=== PATIENT | female | born 1990 | race Caucasian/White ===

== ENCOUNTER 2023-04-19 11:30 | Emergency (ER) | payer MEDICAID ==
[~2023-04-19] VITALS: Ht 162.6 cm; Wt 59.0 kg
[2023-04-19 11:36] VITALS: BP_SYST 94; PULSE 82; RESP 18; TEMP 97.4; O2SAT 100
[2023-04-19 12:57] LABS: INFLUENZA TYPE A Negative (NEGATIVE); INFLUENZA TYPE B NEGATIVE (NEGATIVE)
[2023-04-19] MEDS ORDERED: PSEU30TA36 PO (13:52)
[2023-04-19] MEDS ORDERED: ALBMDI INH (13:52)
[2023-04-19 15:19] VITALS: BP_SYST 94; PULSE 82; RESP 18; TEMP 97.4; O2SAT 100
== END 2023-04-19 15:28 | disposition home or self-care (01) ==
LOC: SED 11:30
DX: J40 Bronchitis, not specified as acute or chronic (principal); Z20.822 Contact with and (suspected) exposure to COVID-19; Z79.899 Other long term (current) drug therapy
CPT/HCPCS: 36415; 71045; 99284

== ENCOUNTER 2023-09-26 14:26 | Emergency (ER) | payer MEDICAID ==
[~2023-09-26] VITALS: Ht 160 cm; Wt 68.0 kg
[~2023-09-26 14:26] MED LIST: ALBMDI INH; PSEU30TA36 PO
[2023-09-26 14:49] VITALS: BP_SYST 96; PULSE 80; RESP 16; TEMP 98.1; O2SAT 100
[2023-09-26 15:40] LABS: INFLUENZA TYPE A Negative (NEGATIVE); INFLUENZA TYPE B NEGATIVE (NEGATIVE)
[2023-09-26 16:44] VITALS: BP_SYST 96; PULSE 80; RESP 16; TEMP 98.1; O2SAT 100
== END 2023-09-26 16:24 | disposition home or self-care (01) ==
LOC: SED 14:26
DX: O98.512 Other viral diseases complicating pregnancy, second trimester (principal); B34.9 Viral infection, unspecified; Z20.822 Contact with and (suspected) exposure to COVID-19; Z3A.19 19 weeks gestation of pregnancy; Z79.899 Other long term (current) drug therapy
CPT/HCPCS: 36415; 99283